=== PATIENT | male | born 1985 | race Caucasian/White ===

== ENCOUNTER 2022-12-03 06:01 | Emergency (ER) | payer OTHER ==
[2022-12-03] MEDS ORDERED: BABY ASPIRIN 81 MG CHEW PO ONE (06:06)
--- NOTE | 2022-12-03 06:06 | ERPHSYRPT ---
<ABRAHAN LUSIVAKUMAR Marcelino - Last Filed: 12/03/22 06:51> - History of Present Illness Time Seen by Provider: 12/03/22 06:05 Historian: patient Exam Limitations: no limitations Physician History: Pt c/o chest pain this AM that lasted 30min, no current pain Pain located on right side. No radiation. Described as cramp. Patient was running late for work and was anxious when pain started. Had similar episode in the past that was associated. w/ anxiety Denies SOB, palpitations, heartburn Not taking any meds BP elevated on arrival 160s/90s Timing/Duration: today Activities at Onset: emotional stress Quality: cramping Location: other (right anterior chest) Chest Pain Radiation: no radiation Severity of Pain-Max: moderate Severity of Pain-Current: none Modifying Factors: Improves With: nothing. Worsens With: movement Associated Symptoms: denies symptoms Prior Chest Pain/Cardiac Workup: no prior cardiac workup Nitro Today/Relief: no nitro taken today Aspirin Treatment Today: 81 mg x 4, provided by ED Allergies/Adverse Reactions: amoxicillin [From Augmentin] Allergy (Verified 12/03/22 06:03) caffeine Allergy (Verified 12/03/22 06:03) cephalexin [From Keflex] Allergy (Verified 12/03/22 06:03) clavulanic acid [From Augmentin] Allergy (Verified 12/03/22 06:03) Penicillins Allergy (Verified 12/03/22 06:03) Home Medications: No Reportable Medications [No Reported Medications] 12/03/22 [History] - Review of Systems Constitutional: No Symptoms Eyes: No Symptoms Ears, Nose, & Throat: No Symptoms Respiratory: No Symptoms 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), Edema Abdominal/Gastrointestinal: No Symptoms Genitourinary Symptoms: No Symptoms Musculoskeletal: No Symptoms Skin: No Symptoms Neurological: No Symptoms - Physical Exam General Appearance: no apparent distress, obese Eye Exam: eyes nml inspection Ears, Nose, Throat Exam: normal ENT inspection Neck Exam: normal inspection, full range of motion Respiratory Exam: airway intact, diminished breath sounds, No chest tenderness, No respiratory distress Cardiovascular Exam: normal heart sounds, tachycardia, capillary refill <2 sec, edema (trace b/l LE) Gastrointestinal/Abdomen Exam: soft, normal bowel sounds, No tenderness Extremity Exam: normal inspection, normal range of motion, swelling (trace b/l LE), No tenderness Neurologic Exam: alert, oriented x 3, cooperative, normal mood/affect Skin Exam: normal color, warm, dry SpO2 Interpretation: normal O2 Delivery: Room Air - Course Nursing assessment & vital signs reviewed: Yes EKG Interpreted by Me: RATE (90), Sinus Rhythm, NORMAL AXIS, NORMAL INTERVALS, NORMAL QRS, NORMAL ST-T - Radiology Exams Chest X-ray Interpretation: Interpreted by me, Negative - Departure Clinical Impression: Chest pain, Anxiety about health Condition: Stable Additional Instructions: Call your primary care provider today to make arranges for follow-up appointment in the next 3 to 5 days. The are to assess your high blood pressure as well as any other heart or lung issues. If you do not have a local primary care provider we have provided you a list of names of providers who are accepting patients. <GRICELDA LOPES - Last Filed: 12/03/22 08:55> - Nursing Vital Signs Nursing Vital Signs: Initial Vital Signs Pulse Rate 85 12/03/22 06:01 Respiratory Rate 28 H 12/03/22 06:01 Blood Pressure 160/92 12/03/22 06:01 O2 Sat by Pulse Oximetry 98 12/03/22 06:01 Pain Scale Pain Intensity 0 Ordered Tests: Active Orders 24 hr Category Date Time Status Pathology Secretary/Transcriptionist STAT Care 12/03/22 06:07 Active EKG-ER Only STAT Care 12/03/22 06:06 Active IV Insertion STAT Care 12/03/22 06:06 Active CHEST 1 VIEW (PORTABLE) Stat Exams 12/03/22 06:06 Completed CBC W DIFF Stat Lab 12/03/22 06:06 Completed CMP Stat Lab 12/03/22 07:05 Completed TROPONIN Q4H Lab 12/03/22 07:05 Completed TROPONIN Q4H Lab 12/03/22 10:15 Ordered TROPONIN Q4H Lab 12/03/22 14:15 Ordered Medication Summary Discontinued Medications Generic Name Dose Route Start Last Admin Trade Name Freq PRN Reason Stop Dose Admin Aspirin 324 mg 12/03/22 06:06 12/03/22 06:13 Aspirin 81 Mg Tab.Chew PO 12/03/22 06:07 324 mg STAT ONE Administration Lab/Rad Data: Laboratory Result Diagrams 12/03/22 06:06 12/03/22 07:05 Laboratory Results 12/03/22 12/03/22 12/03/22 Range/Units 07:05 07:05 06:06 WBC 8.6 (4.0-10.5) x10^3/uL RBC 5.10 (4.1-5.6) x10^6/uL Hgb 16.2 (12.5-18.0) g/dL Hct 49.5 (42-50) % MCV 97.1 (78-100) fL MCH 31.8 (26-32) pg MCHC 32.7 (32-36) g/dL RDW 13.2 (11.5-14.0) % Plt Count 230 (150-450) x10^3/uL MPV 9.9 (7.5-11.0) fL Gran % 62.2 (36.0-66.0) % Immature Gran % (Auto) 0.5 H (0.00-0.4) % Nucleat RBC Rel Count 0.0 (0.00-0.1) % Eos # (Auto) 0.19 (0-0.5) x10^3/uL Immature Gran # (Auto) 0.04 H (0.00-0.03) x10^3u/L Absolute Lymphs (auto) 2.23 (1.0-4.6) x10^3/uL Absolute Monos (auto) 0.73 (0.0-1.3) x10^3/uL Absolute Nucleated RBC 0.00 (0.00-0.01) x10^3u/L Lymphocytes % 26.0 (24.0-44.0) % Monocytes % 8.5 (0.0-12.0) % Eosinophils % 2.2 (0.00-5.0) % Basophils % 0.6 (0.0-0.4) % Absolute Granulocytes 5.33 (1.4-6.9) x10^3/uL Basophils # 0.05 (0-0.4) x10^3/uL Sodium 140 (137-145) mmol/L Potassium 4.0 (3.5-5.1) mmol/L Chloride 105 (98-107) mmol/L Carbon Dioxide 26 (22-30) mmol/L Anion Gap 13.3 (5-15) MEQ/L BUN 15 (9-20) mg/dL Creatinine 0.90 (0.66-1.25) mg/dL Estimated GFR > 60.0 ML/MIN Glucose 122 H (74-106) mg/dL Calcium 8.8 (8.4-10.2) mg/dL Total Bilirubin 0.60 (0.2-1.3) mg/dL AST 38 (17-59) U/L ALT 31 (0-50) U/L Alkaline Phosphatase 91 (38-126) U/L Troponin I < 0.012 (0.000-0.034) ng/mL Serum Total Protein 8.0 (6.3-8.2) g/dL Albumin 4.2 (3.5-5.0) g/dL - Progress Progress: improved, re-examined Air Movement: good Progress Note: 12/03/22 08:50 Chest x-ray was interpreted by the radiologist and I read the impression. There is no acute cardiopulmonary issues. This patient's medical issue is 1 of moderate complexity. The level of complexity and the work-up performed is based on the review of the patient's past medical history, review of the patient's allergy list, review of the patient's medication list, history of present illness and physical findings on examination. The patient's symptoms have resolved. He has no documented coronary artery history. His work-up is negative for any acute cardiopulmonary issue. He will be discharged to home. He does have intermittent hypertension which needs to be evaluated. This can be performed as an outpatient. We provided him with a list of accepting providers. He should contact them today to make arrangements for follow-up appointment in the next 3 to 5 days. Blood Culture(s) Obtained: No Antibiotics given: No Counseled pt/family regarding: lab results, diagnosis, need for follow-up Medical Desision Making - Diagnostic Testing Diagnostic test were ordered, analyzed, and reviewed by me: Yes Radiological Interpretation: Reviewed by me, Teleradiologist Report - Departure Departure Disposition: Home Critical Care Time: No
[2022-12-03 07:02] LABS: Absolute Neutrophil Ct (ANC) 5.33 x10^3/uL (1.4-6.9); BASOPHIL % 0.6 % (0.0-0.4); Basophil (Absolute #) 0.05 x10^3/uL (0-0.4); Eosinophil % 2.2 % (0.00-5.0); Eosinophil (Absolute #) 0.19 x10^3/uL (0-0.5); Hematocrit 49.5 % (42-50); Hemoglobin 16.2 g/dL (12.5-18.0); IMMATURE GRAN # 0.04 x10^3u/L (0.00-0.03); IMMATURE GRAN % 0.5 % (0.00-0.4); Lymphocyte (Absolute #) 2.23 x10^3/uL (1.0-4.6); Mean Cell Volume 97.1 fL (78-100); Mean Corpuscular Hemoglobin 31.8 pg (26-32); Mean Corpuscular Hgb Concent. 32.7 g/dL (32-36); Mean Platelet Volume 9.9 fL (7.5-11.0); Monocyte (Absolute #) 0.73 x10^3/uL (0.0-1.3); Monocytes % 8.5 % (0.0-12.0); Neutrophil % 62.2 % (36.0-66.0); Platelet Count 230 x10^3/uL (150-450); Red Cell Distribution Width 13.2 % (11.5-14.0); White Blood Count 8.6 x10^3/uL (4.0-10.5)
[2022-12-03 07:19] LABS: ALBUMIN 4.2 g/dL (3.5-5.0); ALKALINE PHOSPHATASE 91 U/L (38-126); ANION GAP 13.3 MEQ/L (5-15); BLOOD UREA NITROGEN 15 mg/dL (9-20); CHLORIDE 105 mmol/L (98-107); Calcium 8.8 mg/dL (8.4-10.2); Carbon Dioxide 26 mmol/L (22-30); EST GLOMERULAR FILTRATION RATE > 60.0 ML/MIN; Glucose 122 mg/dL (74-106); SGOT/AST 38 U/L (17-59); SGPT/ALT 31 U/L (0-50); SODIUM 140 mmol/L (137-145)
[2022-12-03 08:30] VITALS: BP 145/99
--- NOTE | 2022-12-03 08:45 | XRAY ---
Indication: Chest pain. Comparison: None Portable chest hyperinflated and clear with incidental tiny left base calcified granuloma. Heart not enlarged. Bony thorax intact. Impression: Nonacute chest with incidental old granulomatous disease.
[2022-12-03 08:59] VITALS: PULSE 74; O2SAT 99
== END 2022-12-03 09:05 | disposition home or self-care (01) ==
LOC: ED 06:01
DX: R07.9 Chest pain, unspecified (principal); F45.9 Somatoform disorder, unspecified
CPT/HCPCS: 36000; 36415; 71045; 80053; 84484; 85025; 93005; 93041; 99284; A9270-GY